=== PATIENT | male | born 1950 | race Asian ===

== ENCOUNTER 2021-07-26 04:29 | Day surgery (SDC) | payer OTHER, BC ==
[2021-07-24 08:21] VITALS: BMI 29.6
[2021-07-26 11:53] VITALS: TEMP 98.2
[2021-07-26 12:33] VITALS: BP 118/68; PULSE 82
== END 2021-07-26 12:45 | disposition home or self-care (01) ==
LOC: JASU-ENDO 04:29
PROVIDERS: ATTEND Internal Medicine Gastroenterology
PROC: 0DJD8ZZ Inspection of Lower Intestinal Tract, Via Natural or Artificial Opening Endoscopic (ICD-10-PCS; principal; 2021-07-26 11:00)
DX: Z12.11 Encounter for screening for malignant neoplasm of colon (principal); K57.30 Diverticulosis of large intestine without perforation or abscess without bleeding; K64.4 Residual hemorrhoidal skin tags; K64.8 Other hemorrhoids; Z86.010 Personal history of colon polyps